=== PATIENT | female | born 1980 | race Two or more races ===

== ENCOUNTER 2022-03-17 12:08 | Outpatient (REF) | payer OTHER, SELFPAY ==
--- NOTE | ~2022-03-17 | MM_ITS ---
EXAMINATION: MM SCREENING DIGITAL BREAST TOMOSYNTHESIS, BILATERAL CLINICAL INFORMATION: Screening. Asymptomatic. Age 31. No prior mammography. No known family history breast cancer. The lifetime risk of breast cancer based on the Tyrer-Cuzick Model is 11%. COMPARISON: None (current study represents initial baseline mammography exam). TECHNIQUE: Digital breast tomosynthesis is performed in both the craniocaudal and mediolateral oblique views along with computer-aided detection (CAD). Synthesized 2D images are generated from the tomosynthesis. FINDINGS: The breasts are heterogeneously dense, which may obscure small masses (ACR BI-RADS breast composition Category c). There is no significant mass or architectural abnormality. The bilateral axilla and skin contours are unremarkable. Right breast shows no abnormal calcifications. There are tightly grouped calcifications central anterior left breast. As this represents initial baseline exam, patient will be recalled for additional magnification views left breast to fully characterize. MM/MM tomosynthesis screening BI IMPRESSION: Left: -Tightly grouped calcifications central anterior breast. Right: -No mammographic evidence of malignancy. ASSESSMENT: BI-RADS 0: Incomplete - Need Additional Imaging Evaluation RECOMMENDATION: 1. Additional views of the left breast (magnification CC, magnification ML). 2. Radiology department staff will contact the patient for additional imaging. This patient's information was entered into a reminder system with a target due date for their next mammogram.
== END 2022-03-17 12:09 | disposition home or self-care (01) ==
LOC: HO.MAMMO 12:08
PROVIDERS: PCP Internal Medicine; Visit Provider Internal Medicine
DX: Z12.31 Encounter for screening mammogram for malignant neoplasm of breast (principal)
CPT/HCPCS: 77063; 77067

== ENCOUNTER 2022-03-31 10:51 | Outpatient (REF) | payer OTHER, SELFPAY ==
--- NOTE | ~2022-03-31 | MM_ITS ---
EXAMINATION: MM DIAGNOSTIC DIGITAL MAMMOGRAPHY, LEFT CLINICAL INFORMATION: Recall from baseline exam for grouped calcifications central anterior left breast. TC score 11%. No known family history breast cancer. COMPARISON: Mammography: 03/17/2022, baseline. TECHNIQUE: Digital mammography is performed in the following views: Magnification CC x2, magnification ML. FINDINGS: The breasts are heterogeneously dense, which may obscure small masses (ACR BI-RADS breast composition Category c). The magnification views show relatively tightly grouped relatively coarse calcifications anterior upper breast on MLO view. Calcifications are less conspicuous and possibly dispersed on CC view. Chronicity is unknown. Management plan is for short interval follow-up left mammography in 6 months. Results are discussed with the patient at time of visit. MM/MM added views LT IMPRESSION: Relatively coarse calcifications anterior central upper left breast, probably benign. ASSESSMENT: BI-RADS 3: Probably Benign RECOMMENDATION: Diagnostic left mammography in 6 months. This patient's information was entered into a reminder system with a target due date for their next mammogram.
== END 2022-03-31 10:52 | disposition home or self-care (01) ==
LOC: HO.MAMMO 10:51
PROVIDERS: PCP Internal Medicine; Visit Provider Internal Medicine
DX: R92.1 Mammographic calcification found on diagnostic imaging of breast (principal)
CPT/HCPCS: 77065

== ENCOUNTER 2022-09-30 14:34 | Outpatient (REF) | payer OTHER, SELFPAY ==
--- NOTE | ~2022-09-30 | MM_ITS ---
EXAMINATION: MM DIAGNOSTIC DIGITAL BREAST TOMOSYNTHESIS, LEFT CLINICAL INFORMATION: Short interval six-month follow-up for probable benign calcifications anterior upper left breast initially noted at baseline exam. TC score 11%. COMPARISON: Mammography: 03/31/2022, 03/17/2022 (BI-RADS 0, baseline). TECHNIQUE: Digital breast tomosynthesis is performed in both the craniocaudal and mediolateral oblique views along with computer-aided detection (CAD). Synthesized 2D images are generated from the tomosynthesis. Additional magnification left CC and magnification left ML views are obtained. FINDINGS: The breasts are heterogeneously dense, which may obscure small masses (ACR BI-RADS breast composition Category c). Parenchymal pattern is similar to prior exams and there is no developing density or interval mass or architectural abnormality. The axilla and skin contours are unremarkable. Calcifications for follow-up anterior upper left breast are similar to prior diagnostic exam. They will be reassessed again at time of annual bilateral mammography, due in 6 months. Results are provided to the patient at time of visit by the technologist. MM/MM tomosynthesis diagnostic LT IMPRESSION: No significant change probable benign calcifications anterior central upper left breast. ASSESSMENT: BI-RADS 3: Probably Benign RECOMMENDATION: Diagnostic mammography at time of annual bilateral mammography, due in 6 months. This patient's information was entered into a reminder system with a target due date for their next mammogram.
== END 2022-09-30 14:35 | disposition home or self-care (01) ==
LOC: HO.MAMMO 14:34
PROVIDERS: PCP Internal Medicine; Visit Provider Internal Medicine
DX: R92.1 Mammographic calcification found on diagnostic imaging of breast (principal)
CPT/HCPCS: 77061; 77065

== ENCOUNTER 2023-08-24 09:48 | Outpatient (AMB) | payer OTHER, SELFPAY ==
[2023-08-24 09:50] VITALS: BP 104/78; PULSE 75; O2SAT 94; BMI 33.3
--- NOTE | 2023-08-24 09:50 | A.OFFPC_ITS ---
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 Accompanied by: Self / Same As Patient Allergies No Known Allergies Allergy (Verified 08/24/23 09:51) Medication List - Last Reconciled 08/24/23 by Karl Davis MD spironolactone 100 mg PO BID Tobacco use date assessed: 08/24/23 Dental Screening Dental Screen Date: 08/24/23 Did you have a dental visit in the last 12 months?: Yes Did you have a dental problem in the last 6 months where you did not have access to dental care?: No Was dental information given to patient?: Patient has dentist HPI PE HPI Details on spironolactone from endo; stable [facility] Surgical History (Updated 08/19/22 @ 13:48 by SERVANDO Reed) No pertinent past surgical history Social History (Updated 08/19/22 @ 13:43 by SERVANDO Reed) Housing: Apartment Alcohol intake: never Patient Tobacco Use Status: Never used Tobacco e-Cigarette/Vaping Use: Never Used Second Hand Smoke Exposure: No service: No Current occupational status: employed Current occupation: MANUAL TESTER Cognitive needs: No Hearing needs: No Vision needs: Yes (glasses) Questionnaire PHQ-9 Over the last 2 weeks, how often have you been bothered by any of the following problems? 1. Little interest or pleasure in doing things: not at all 2. Feeling down, depressed, or hopeless: not at all 3. Trouble falling or staying asleep, or sleeping too much: not at all 4. Feeling tired or having little energy: not at all 5. Poor appetite or overeating: not at all 6. Feeling bad about yourself - or that you are a failure or have let yourself or your family down: not at all 7. Trouble concentrating on things, such as reading the newspaper or watching television: not at all 8. Moving or speaking so slowly that other people could have noticed. Or the opposite - being so fidgety or restless that you have been moving around a lot more than usual: not at all 9. Thoughts that you would be better off or of hurting yourself in some way: not at all Total score: 0 Depression Screening Interpretation: Negative Depression Screening Done: Yes 45509 - PHQ-9 Billing: Yes Source: Developed by Drs. Rohan Worthington, Bebe Silva, Chadwick Nair and colleagues, with an educational benjamin from [employer] Thrive Questionnaire Date Thrive assessed: 08/24/23 I am a: Patient What is your living situation today?: I have a steady place to live Within the past 12 months, did the food you bought not last and you didn't have the money to get more?: Never true Within the past 12 months, did you worry whether your food would run out before you got money to buy more?: Never true Do you have trouble paying for medicines?: No Do you have trouble getting transportation to medical appointments?: No Do you have trouble paying your heating and electricity bill?: No Do you have trouble taking care of your child, family member or friend?: No Do you have trouble with day-to-day activities such as bathing, preparing meals, shopping, managing finances, etc.?: No Are you currently unemployed and looking for a job?: No Are you interested in more education?: No Please select the resources that you would like help with: None THRIVE Score: 0 AUDIT C Alcohol Use Questionnaire (AUDIT-C) 1. How often do you have a drink containing alcohol?: Never Total Score: 0 Score Reviewed/Action Taken: Yes MARIA DEL CARMEN-7 AMB Questionnaire MARIA DEL CARMEN-7 Date MARIA DEL CARMEN - 7 assessed: 08/24/23 Feeling nervous, anxious, or on edge: 0 = Not at all Not being able to stop or control worryin = Not at all Worrying too much about different things: 0 = Not at all Trouble relaxin = Not at all Being so restless that it is hard to sit still: 0 = Not at all Becoming easily annoyed or irritable: 0 = Not at all Feeling afraid as if something awful might happen: 0 = Not at all Total MARIA DEL CARMEN-7 score (0-4 normal; 5-9 mild; 10-14 moderate; 15-21 severe): 0 Source: Developed by Bebe Buckner, Chadwick Nair and colleagues, with an educational benjamin from [employer] MARIA DEL CARMEN-7 Assessment Billing MARIA DEL CARMEN-7 Assessment Tool: MARIA DEL CARMEN-7 Assessment 65189 Review of Systems Const Denies chills, Denies fatigue, Denies headache(s) and Denies weight loss Eyes Denies change in vision, Denies diplopia and Denies eye pain ENT Denies vertigo, Denies dizziness, Denies headache(s) and Denies nasal discharge Card Denies chest pain, Denies rapid heart rate and Denies dyspnea on exertion Resp Denies chest congestion, Denies cough, Denies pain with cough and Denies dyspnea on exertion GI Denies abdominal pain, Denies hematochezia and Denies change in bowel habits Musc Denies myalgias, Denies arthralgias and Denies joint swelling Skin/Breast Denies lesions and Denies unusual bruising Neuro Denies vertigo, Denies dizziness, Denies headache(s) and Denies focal weakness Endo Denies fatigue Physical exam (Primary Care) Vital Signs: Last Vital Signs Pulse 75 08/24/23 09:50 BP 104/78 08/24/23 09:50 Pulse Ox 94 08/24/23 09:50 Oxygen Delivery Method Room Air 08/24/23 09:50 BMI result Body Mass Index 33.3 Tobacco/Smoking Status: Tobacco use Status Tobacco use date assessed 08/24/23 08/24/23 09:51 Patient Tobacco Use Status Never used Tobacco 08/24/23 09:51 e-Cigarette/Vaping Use Never Used 08/24/23 09:51 PHQ-9: PHQ-9 Score PHQ-9: Total score 0 08/24/23 09:51 Depression Screening Interpretation: Negative Thrive Assessment: Date of Thrive Assessment Date Thrive assessed 08/24/23 08/24/23 09:51 Const General: cooperative, healthy appearing and no acute distress Orientation/consciousness: oriented to person, oriented to place and oriented to time [facility] Head: Yes normal to inspection, Yes normocephalic and Yes atraumatic Mouth: Normal oral and palatal mucosa present and tongue normal Throat: Yes posterior oropharynx normal and Yes uvula midline Eyes General: appearance normal, both eyes and all related structures Neck Neck: Yes normal visual inspection, Yes full ROM and Yes no lymphadenopathy Thyroid: Thyroid normal Carotids: normal carotid upstroke Chest Chest palpation & inspection: normal inspection of the chest Resp Effort & Inspection: normal respiratory effort and able to speak in complete sentences Auscultation: clear to auscultation bilaterally Cardio Jugular venous distension: no JVD Palpation: normal PMI Rate: regular rate Rhythm: regular rhythm Heart sounds: S1 normal heart sound present and S2 normal heart sound present GI Inspection: Yes normal to inspection Palpation (GI): Soft to palpation and No hepatosplenomegaly present Auscultation: normal bowel sounds General: Yes no CVA tenderness Back/Spine/Pelvis Back: no CVA tenderness Skin General skin exam: no rashes or lesions noted Neuro General: oriented to person, oriented to place and oriented to time Extrem General: Yes normal to inspection and Yes full ROM Assessment and Plan Assessment & Plan (1) Physical exam: Code(s): Z00.00 - Encounter for general adult medical examination without abnormal findings Plan: do labs Orders: Orders Thyroid Stimulating Hormone Today Z13.29 - Encounter for screening for other suspected endocrine disorder Comprehensive [place]. Panel Fast Today Z13.9 - Encounter for screening, unspecified Lipid Panel Today Z13.220 - Encounter for screening for lipoid disorders Complete Blood Count Auto Diff Today Z13.0 - Encounter for screening for diseases of the blood and blood-forming organs and certain disorders involving the immune mechanism XR foot RT 2V Today M79.673 - Pain in unspecified foot Coding Level of Care Code Est Pt Prev Care 40-64y(31194) Diagnoses Physical exam Z00.00 Additional Codes MARIA DEL CARMEN-7 Assessment Billing - MARIA DEL CARMEN-7 Assessment Tool: MARIA DEL CARMEN-7 Assessment 10295 ([id number])
== END 2023-08-24 10:10 | disposition home or self-care (01) ==
PROVIDERS: Visit Provider Internal Medicine
DX: Z00.00 Encounter for general adult medical examination without abnormal findings (principal)
CPT/HCPCS: 99396

== ENCOUNTER 2023-09-06 17:26 | Emergency (ER) | payer SELFPAY ==
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
[2023-09-06 18:02] VITALS: BP 130/77; PULSE 97; RESP 18; TEMP 37; O2SAT 99; BMI 27.3
== END 2023-09-06 18:18 | disposition home or self-care (01) ==
LOC: HO.ED 18:13
PROVIDERS: Emergency Provider Student in an Organized Health Care Education/Training Program; PCP Internal Medicine
DX: M54.2 Cervicalgia (principal); R07.89 Other chest pain; M25.562 Pain in left knee; M25.561 Pain in right knee; V49.40XA Driver injured in collision with unspecified motor vehicles in traffic accident, initial encounter; Y93.9 Activity, unspecified; Y92.9 Unspecified place or not applicable; Y99.9 Unspecified external cause status
CPT/HCPCS: 99281; 99283

== ENCOUNTER 2023-12-27 09:31 | Outpatient (AMB) | payer OTHER, SELFPAY ==
[2023-12-27 09:37] VITALS: BP 130/76; PULSE 82; O2SAT 98; BMI 35.3
--- NOTE | 2023-12-27 09:37 | MHC.PC.OV ---
Vital Signs 12/27/23 09:37 Height 5 ft 9 in Weight 239 lb BMI 35.3 BP 130/76 Blood Pressure Location Lt brachial Position Sitting Pulse 82 Pulse Source Pulse Oximeter Pulse Oximetry (%) 98 Oxygen Delivery Method Room Air Intake Visit Reasons: F\U Hematology Technologist Required: No Accompanied by: Self / Same As Patient Allergies No Known Allergies Allergy (Verified 12/27/23 09:37) Medication List - Last Reconciled 12/27/23 by Karl Davis MD cyclobenzaprine 5 mg PO TID PRN 7 days naproxen 500 mg PO BID 7 days spironolactone 100 mg PO BID Tobacco use date assessed: 08/24/23 Dental Screening Dental Screen Date: 08/24/23 HPI F\U HPI Details injured left ankle a month ago; still hurts [facility] Surgical History No pertinent past surgical history Social History Housing: Apartment Alcohol intake: never Patient Tobacco Use Status: Never used Tobacco e-Cigarette/Vaping Use: Never Used Second Hand Smoke Exposure: No service: No Current occupational status: employed Current occupation: [employer] Cognitive needs: No Hearing needs: No Vision needs: Yes (glasses) Questionnaire PHQ-9 Over the last 2 weeks, how often have you been bothered by any of the following problems? 1. Little interest or pleasure in doing things: not at all 2. Feeling down, depressed, or hopeless: not at all 3. Trouble falling or staying asleep, or sleeping too much: not at all 4. Feeling tired or having little energy: not at all 5. Poor appetite or overeating: not at all 6. Feeling bad about yourself - or that you are a failure or have let yourself or your family down: not at all 7. Trouble concentrating on things, such as reading the newspaper or watching television: not at all 8. Moving or speaking so slowly that other people could have noticed. Or the opposite - being so fidgety or restless that you have been moving around a lot more than usual: not at all 9. Thoughts that you would be better off or of hurting yourself in some way: not at all Total score: 0 Depression Screening Interpretation: Negative Depression Screening Done: Yes 65240 - PHQ-9 Billing: Yes Source: Developed by Drs. Rohan Worthington, Bebe Silva, Chadwick Nair and colleagues, with an educational benjamin from [employer]. Thrive Questionnaire Date Thrive assessed: 08/24/23 AUDIT C Alcohol Use Questionnaire (AUDIT-C) 1. How often do you have a drink containing alcohol?: Never Total Score: 0 Score Reviewed/Action Taken: Yes MARIA DEL CARMEN-7 AMB Questionnaire MARIA DEL CARMEN-7 Date MARIA DEL CARMEN - 7 assessed: 08/24/23 Source: Developed by Drs. Rohan Worthington, Bebe Silva, Chadwick Nair and colleagues, with an educational benjamin from [employer]. Review of Systems Const Denies chills, Denies headache(s) and Denies weight loss ENT Denies headache(s) Card Denies chest pain, Denies syncope, Denies irregular heart rhythm and Denies dyspnea Resp Denies chest congestion, Denies cough and Denies dyspnea GI Denies abdominal pain, Denies change in stool character, Denies nausea and Denies vomiting Musc Denies deformity and Denies joint swelling Neuro Denies syncope and Denies headache(s) Physical exam (Primary Care) Vital Signs: Last Vital Signs Pulse 82 12/27/23 09:37 BP 130/76 12/27/23 09:37 Pulse Ox 98 12/27/23 09:37 Oxygen Delivery Method Room Air 12/27/23 09:37 BMI result Body Mass Index 35.3 Tobacco/Smoking Status: Tobacco use Status Tobacco use date assessed 08/24/23 12/27/23 09:42 Patient Tobacco Use Status Never used Tobacco 12/27/23 09:42 e-Cigarette/Vaping Use Never Used 12/27/23 09:42 PHQ-9: PHQ-9 Score PHQ-9: Total score 0 12/27/23 09:42 Depression Screening Interpretation: Negative Thrive Assessment: Date of Thrive Assessment Date Thrive assessed 08/24/23 12/27/23 09:42 Const General: cooperative, comfortable, no acute distress and alert Neck Neck: Yes no lymphadenopathy Thyroid: Thyroid normal Resp Effort & Inspection: normal respiratory effort Auscultation: clear to auscultation bilaterally Percussion: percussion normal Cardio Jugular venous distension: no JVD Palpation: normal PMI Rate: regular rate Rhythm: regular rhythm Heart sounds: S1 normal heart sound present and S2 normal heart sound present GI Inspection: Yes normal to inspection Palpation (GI): No hepatosplenomegaly present Skin General skin exam: no rashes or lesions noted Extrem General: Yes no clubbing, cyanosis or edema Assessment and Plan Assessment & Plan (1) Left ankle pain: Code(s): M25.572 - Pain in left ankle and joints of left foot Plan: xr Orders: Orders XR foot LT 2V Today M79.672 - Pain in left foot Coding Level of Care Code Est Pt Level 3 (85829) Diagnoses Left ankle pain M25.572
== END 2023-12-27 09:53 | disposition home or self-care (01) ==
PROVIDERS: PCP Internal Medicine; Visit Provider Internal Medicine
DX: M25.572 Pain in left ankle and joints of left foot (principal)
CPT/HCPCS: 99213

== ENCOUNTER 2023-12-27 10:02 | Outpatient (REF) | payer OTHER, SELFPAY ==
--- NOTE | ~2023-12-27 | XR_ITS ---
EXAMINATION: XR FOOT, RIGHT XR FOOT, LEFT CLINICAL INFORMATION: Right and left foot pain. COMPARISON: None available. TECHNIQUE: AP, oblique, and lateral views of the right and left foot. FINDINGS: RIGHT FOOT: No acute fracture or dislocation. Mild joint space narrowing with small marginal osteophytes at the hallux sesamoids. No osseous erosion. No abnormal soft tissue calcification. LEFT FOOT: No acute fracture or dislocation. No joint space narrowing. Tiny marginal osteophytes at the hallux sesamoids. Tiny plantar calcaneal spur. No osseous erosion. 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 LEFT FOOT: Mild osteoarthritis at the hallux sesamoids. Tiny plantar calcaneal spur. Electronically signed by: Delfin Owens MD 12/31/2023 10:15 AM EDT
--- NOTE | ~2023-12-27 | XR_ITS ---
EXAMINATION: XR FOOT, RIGHT XR FOOT, LEFT CLINICAL INFORMATION: Right and left foot pain. COMPARISON: None available. TECHNIQUE: AP, oblique, and lateral views of the right and left foot. FINDINGS: RIGHT FOOT: No acute fracture or dislocation. Mild joint space narrowing with small marginal osteophytes at the hallux sesamoids. No osseous erosion. No abnormal soft tissue calcification. LEFT FOOT: No acute fracture or dislocation. No joint space narrowing. Tiny marginal osteophytes at the hallux sesamoids. Tiny plantar calcaneal spur. No osseous erosion. XR/XR foot RT 2V IMPRESSION: RIGHT FOOT: Mild osteoarthritis at the hallux sesamoids. LEFT FOOT: Mild osteoarthritis at the hallux sesamoids. Tiny plantar calcaneal spur. Electronically signed by: Delfin Owens MD 12/31/2023 10:15 AM EDT
== END 2023-12-27 10:03 | disposition home or self-care (01) ==
LOC: HO.XRAY 10:02
PROVIDERS: PCP Internal Medicine; Visit Provider Internal Medicine
DX: M79.672 Pain in left foot (principal); M79.671 Pain in right foot
CPT/HCPCS: 73620

== ENCOUNTER 2024-09-13 15:48 | Emergency (ER) | payer OTHER, SELFPAY ==
--- NOTE | ~2024-09-13 | XR_ITS ---
CLINICAL HISTORY: fall, Medial malleolus pain 3 view right ankle Comparison: None Findings: No acute fractures. Ankle mortise intact. No significant loss of joint space, osteophytes, or erosions. No ankle effusion. No radiopaque foreign body. IMPRESSION: 1. No acute findings. This document has been electronically signed by: Gary العلي MD on 09/13/2024 16:55:48
--- NOTE | ~2024-09-13 | CT_ITS ---
CLINICAL HISTORY: Fall, headstrike on stairs CT cervical spine without contrast Comparison: None Findings: 10 mm cerumen plugs within the bilateral external auditory canals. Vertebral alignment is within normal limits. No significant degenerative change. No acute fractures or dislocations. Visualized intracranial contents are unremarkable. Soft tissues of the neck are normal. Lung apices are clear. IMPRESSION: No acute findings. This document has been electronically signed by: Gary العلي MD on 09/13/2024 17:11:14
--- NOTE | ~2024-09-13 | CT_ITS ---
CLINICAL HISTORY: Fall, headstrike on stairs CT head without contrast Comparison: None Findings: No intra-axial mass, midline shift, hydrocephalus, or acute hemorrhage. No significant atrophy-like change or white matter disease. There is no sinus or mastoid fluid. The orbits are unremarkable. There is no acute fracture. IMPRESSION: 1. No acute intracranial findings. This document has been electronically signed by: Gary العلي MD on 09/13/2024 17:13:52
[2024-09-13 15:56] VITALS: BP 139/91; PULSE 100; RESP 19; TEMP 36.6; O2SAT 98; BMI 33.2
--- NOTE | 2024-09-13 15:56 | ED_ITS ---
HPI - Fall General Chief Complaint: Fall Stated Complaint: Fell down stairs - head injury Time Seen by Provider: 09/13/24 16:28 History of Present Illness ED Provider: [facility] Narrative: 44-year-old female who was dragged by a dog down 4 steps fell down hit her head, no LOC and complains of right ankle pain along the deltoid, denies syncope denies chest pain denies abdominal pain, states she has an abrasion to her right trapezial area, she is not on blood thinners. Related Data Home Medications ?Medication ?Instructions ?Recorded ?Confirmed spironolactone 100 mg tablet 100 mg PO BID 08/19/22 12/27/23 Previous Rx's ?Medication ?Instructions ?Recorded cyclobenzaprine 5 mg tablet 5 mg PO TID PRN back pain 7 days 09/06/23 #21 tabs naproxen 500 mg tablet 500 mg PO BID 7 days #14 tabs 09/06/23 Allergies Allergy/AdvReac Type Severity Reaction Status Date / Time No Known Allergies Allergy Verified 09/13/24 15:59 Review of Systems Constitutional: Constitutional: Reports as per [facility] Past Medical History Surgical History No pertinent past surgical history Social History Social History Housing: Apartment Alcohol intake: never Patient Tobacco Use Status: Never used Tobacco Smoked in Last 30 Days: No e-Cigarette/Vaping Use: Never Used Second Hand Smoke Exposure: No Use of substances other than those prescribed or required for medical reasons: No Advance Directives: No Advance Directives Information Provided: No Do you have a plan to hurt others: No Plan Patient : No service: No Current occupational status: employed Current occupation: ACCOUNTING MANAGER [employer] Cognitive needs: No Hearing needs: No Vision needs: Yes (glasses) Physical Exam Vital Signs: Vital Signs: Last Vital Signs Temp 98.0 F 09/13/24 18:12 Pulse 75 09/13/24 18:12 Resp 18 09/13/24 18:12 BP 130/70 09/13/24 18:12 Pulse Ox 97 09/13/24 18:12 O2 Del Method Room Air 09/13/24 18:12 BMI result Body Mass Index 33.2 Const: Other: * Gen: ?Overall well-appearing patient * HEENT: No dental trauma * Neck: No midline cervical tenderness, abrasion to the right trapezial area without bleeding * CV: RRR, no obvious murmurs appreciated * Resp: ?No wheezing rales rhonchi no stridor moving air well * Abd: ?Bowel sounds are present, no tenderness no rebound no rigidity * MSK: FROM, strength 5/5 all extremities, pelvis is stable, tenderness along her right deltoid, slight bony tenderness in the right as well, no midfoot tenderness, distal pulses intact, full range of motion both hips both ankles both upper extremities * Skin: Warm, dry, intact, * Neuro: ?Alert and oriented x3, moving upper and lower extremities symm etrically, no obvious facial asymmetry noted Course Course Course Narrative: This is a rapid medical exam performed by Arlin Devries NP: Additional HPI, ROS, PE not included below will be deferred to primary provider. 44-year-old female without significant PMHx presents to the ED today after a mechanical fall. Patient states that she was walking down the stairs when the dog got in the way and she slipped down 4 stairs falling backwards and hitting her head on the stairs, and landing on right ankle. She denies LOC, AC, chest pain, SOB Plan: CT head/c-spine, XR R ankle Medical Decision Making Medical Decision Making [facility] Narrative: Presented after a fall, sustained head injury, this was a nonsyncopal fall, low suspicion for had a neck injury, workup has been initiated in triage, right ankle x-ray without obvious fractures, she has no other tenderness along her spine to suspect need for further imaging. Anticipating discharge Independent Interpretation I performed an independent interpretation of an: Plain X-Ray (Right ankle x-ray negative for fractures or dislocations) Radiology Impression Discussion of test interpretation with radiology: I have reviewed the radiologist's reading. Radiologist Impression: CT head and neck is negative Discharge Plan Discharge Clinical Impression: Contusion of ankle, right, Contusion of head Patient Disposition: Home, Self-Care Additional Instructions: Evaluated after a fall, he had CT of the head and neck area there are no fractures or acute injuries to her brain, you may have some concussive symptoms such as nausea, headache, I recommend rest for the next few days I will give you a work note so you do not work on the computer if you are doing that, I would avoid any screen time, take Tylenol as needed for headaches, you can also ICU a right ankle and take Tylenol for pain as well you can use ibuprofen 400 mg every 6 hours as needed, follow up with the PCP any worsening issues or concerns come back to the ER, and as discussed your right ankle was also negative for any fractures so you have likely a contusion Prescriptions: No Action naproxen 500 mg tablet 500 mg PO BID 7 Days Qty: 14 0RF cyclobenzaprine 5 mg tablet 5 mg PO TID PRN (Reason: back pain) 7 Days Qty: 21 0RF spironolactone 100 mg tablet 100 mg PO BID Stand Alone Forms: Work/School Release Interventions: ED Discharge Assessment Last Done: 09/13/24 18:12 Discharge Date/Time: 09/13/24 18:13 Print Language: Anguillan
[2024-09-13 18:00] VITALS: BP 130/70; PULSE 75; RESP 18; TEMP 36.7; O2SAT 97
[2024-09-13 18:12] VITALS: BP 130/70; PULSE 75; RESP 18; TEMP 36.7; O2SAT 97
== END 2024-09-13 18:13 | disposition home or self-care (01) ==
PROVIDERS: Emergency Provider Emergency Medicine; PCP Internal Medicine
DX: S00.93XA Contusion of unspecified part of head, initial encounter (principal); S90.01XA Contusion of right ankle, initial encounter; R51.9 Headache, unspecified; M54.2 Cervicalgia; M25.571 Pain in right ankle and joints of right foot; X58.XXXA Exposure to other specified factors, initial encounter; W19.XXXA Unspecified fall, initial encounter; Y93.9 Activity, unspecified; Y92.9 Unspecified place or not applicable; Y99.8 Other external cause status; Z79.899 Other long term (current) drug therapy
CPT/HCPCS: 70450; 72125; 73610; 99284

== ENCOUNTER → 2024-09-13 15:59 | Outpatient (BNV) | payer OTHER, SELFPAY | PROVIDERS: Emergency Provider Emergency Medicine; PCP Internal Medicine; Visit Provider Radiology Diagnostic Radiology | DX: S09.90XA Unspecified injury of head, initial encounter (principal); M25.571 Pain in right ankle and joints of right foot; W10.8XXA Fall (on) (from) other stairs and steps, initial encounter | CPT/HCPCS: 70450; 72125; 73610 ==